=== PATIENT | female | born 1985 | race Hispanic/Latino ===

== ENCOUNTER 2023-04-23 09:41 | Emergency (ER) | payer OTHER ==
[~2023-04-23] VITALS: Ht 152.4 cm; Wt 62.3 kg
[2023-04-23 11:33] LABS: BASOPHILS 0.3 % (0-2); EOSINOPHILS 2.4 % (0-6); HEMATOCRIT 40.2 % (35.0-50.0); HEMOGLOBIN 13.8 g/dL (12.0-18.0); LYMPHOCYTES 24.8 % (24-44); MCH 30.5 (27-36); MCHC 34.2 g/dl (30-36); MONOCYTES 8.8 % (0-12); NEUTROPHILS 63.7 % (39-80); PLATELET COUNT 249 K/uL (140-440); RBC 4.52 M/ul (4.3-5.7); RDW 12.9 (10.5-15.0)
[2023-04-23 11:34] LABS: BILIRUBIN, URINE NEGATIVE (negative); BLOOD/HGB, URINE NEGATIVE (Negative); KETONE, URINE TRACE (Negative); LEUK ESTERASE, URINE NEGATIVE (negative); NITRITE, URINE NEGATIVE (negative)
[2023-04-23 11:51] LABS: ALBUMIN 3.9 g/dL (3.4-5.0); ALBUMIN/GLOBULIN RATIO 1.22 (1.1-2.4); ANION GAP 11.3 (7-21); BILIRUBIN, TOTAL 0.6 ng/dL (0.2-1.0); BUN/CREATININE RATIO 19.73 (6.0-28.6); CALCIUM 8.7 mg/dL (8.5-10.1); CREATININE, SERUM 0.76 mg/dL (0.55-1.02); POTASSIUM 3.3 mmol/L (3.5-5.1); PROTEIN, TOTAL 7.1 g/dL (6.4-8.2)
[2023-04-23] MEDS ORDERED: HYDROCODON-ACE1 EA10 PO (13:40)
[2023-04-23 13:55] VITALS: BP 115/87
== END 2023-04-23 13:56 | disposition home or self-care (01) ==
LOC: ED 09:41
PROVIDERS: Emergency Medicine
DX: B34.9 Viral infection, unspecified (principal); R73.03 Prediabetes
CPT/HCPCS: 36415; 80053; 81003; 84703; 85025; 99283